=== PATIENT | female | born 1945 | race Caucasian/White ===

== ENCOUNTER 2017-11-15 00:41 | Emergency (ER) | payer SELFPAY ==
[~2017-11-15] VITALS: Ht 172.7 cm; Wt 77.3 kg
[2017-11-15 00:48] VITALS: BP 179/95
[2017-11-15] MEDS ORDERED: PRED5 PO (00:52)
[2017-11-15] MEDS ORDERED: ASPI81 PO (00:52)
[2017-11-15] MEDS ORDERED: ONDA4TAB7 PO (00:52)
[2017-11-15] MEDS ORDERED: LORA2TAB2 PO (00:53)
== END 2017-11-15 03:38 | disposition left against medical advice (07) ==
LOC: EMS 00:44
DX: Z53.21 Procedure and treatment not carried out due to patient leaving prior to being seen by health care provider (principal)